=== PATIENT | male | born 1940 | race Caucasian/White ===

== ENCOUNTER 2017-06-07 09:08 | Day surgery (SDC) | payer MEDICARE, BC ==
[2017-06-04 12:09] LABS: HEMATOCRIT 44.6 % (39.2-51.8); HEMOGLOBIN 14.9 g/dL (13.7-18.0); WHITE BLOOD COUNT 7.6 x10^3/uL (3.4-10)
[2017-06-04 12:31] LABS: BLOOD UREA NITROGEN 11 mg/dL (7-18)
[~2017-06-07] VITALS: Ht 175.3 cm; Wt 78.2 kg
[~2017-06-07 09:08] MED LIST: ASPI-496 PO; DUTA0.5C PO; PANT40TA5 PO; TAMS0.4C2 PO
[2017-06-07] MEDS ORDERED: LIDOCAINE/MPF 2%-EPI 1:200K, 20 ML ONE (09:09)
[2017-06-07] MEDS ORDERED: THROMBIN 5,000 UNIT VIAL TP ONE (09:09)
[2017-06-07] MEDS ORDERED: TRANEXAMIC ACID 100 MG/ML, 10ML ONE (09:09)
[2017-06-07] MEDS ORDERED: BUPIVACAINE/PF 0.5% ONE (09:09)
[2017-06-07] MEDS ORDERED: VANCOMYCIN 1,000 MG ONE (09:10)
[2017-06-07] MEDS ORDERED: LACTATED RINGERS 1,000 ML IV SCH (09:32)
[2017-06-07 09:34] VITALS: BP 148/85
[2017-06-07] MEDS ORDERED: MIDAZOLAM 1 MG/ML, 2ML ONE (11:50)
[2017-06-07] MEDS ORDERED: FENTANYL PF 250 MCG/5ML ONE (11:50)
[2017-06-07] MEDS ORDERED: CEFAZOLIN 1,000 MG ONE (13:02)
[2017-06-07] MEDS ORDERED: ROCURONIUM 10 MG/ML ONE (13:02)
[2017-06-07] MEDS ORDERED: NEOSTIGMINE 1 MG/ML, 10ML ONE (13:02)
[2017-06-07] MEDS ORDERED: PROPOFOL 10 MG/ML, 20ML ONE (13:02)
[2017-06-07] MEDS ORDERED: SUCCINYLCHOLINE 20 MG/ML, 10ML ONE (13:02)
[2017-06-07] MEDS ORDERED: GLYCOPYRROLATE 0.2MG/1ML, 5ML ONE (13:02)
[2017-06-07] MEDS ORDERED: DEXAMETHASONE 4 MG/ML, 1ML ONE (13:02)
[2017-06-07] MEDS ORDERED: ONDANSETRON 2MG/ML, 2ML ONE (13:02)
[2017-06-07] MEDS ORDERED: LIDOCAINE 4%, 4 ML SYR/CANN TP ONE (13:10)
[2017-06-07] MEDS ORDERED: PHENYLEPHRINE 10 MG/ML ONE (13:10)
[2017-06-07] MEDS ORDERED: BUPIVACAINE LIPOSOME/PF INFIL ONE (13:59)
[2017-06-07] MEDS ORDERED: ACETAMINOPHEN 325 MG TABLET PO PRN (14:00)
[2017-06-07] MEDS ORDERED: HYDROmorphone 1 MG/ML, 1ML IV PRN (14:00)
[2017-06-07] MEDS ORDERED: HYDROcodone/APAP 7.5-325MG/15ML UDC PO PRN (14:00)
[2017-06-07] MEDS ORDERED: OXYcodone 5 MG/5 ML ORAL.SOL UDC PO PRN (14:00)
[2017-06-07] MEDS ORDERED: PROMETHAZINE 25 MG/ML, 1ML IV PRN (14:00)
[2017-06-07] MEDS ORDERED: FENTANYL PF 100 MCG/2ML IV PRN (14:00)
[2017-06-07] MEDS ORDERED: ONDANSETRON 2MG/ML, 2ML IVPush PRN (14:00)
== END 2017-06-07 17:00 ==
LOC: OUT 09:08
PROVIDERS: ATTEND Orthopaedic Surgery Orthopaedic Surgery of the Spine
DX: M48.061 Spinal stenosis, lumbar region without neurogenic claudication (principal); E03.9 Hypothyroidism, unspecified; Z88.8 Allergy status to other drugs, medicaments and biological substances; Z87.39 Personal history of other diseases of the musculoskeletal system and connective tissue
CPT/HCPCS: 36415; 63047; 71010; 72100; 80048; 81003; 85025; 87081; 93005; C9290; J0330; J0690; J1100; J2250; J2370; J2405; J2704; J2710; J3010; J3370; J3490; J7120